=== PATIENT | male | born 1965 | race Asian ===

== ENCOUNTER 2021-06-13 09:10 | Emergency (ER) | payer MEDICAID, OTHER ==
[~2021-06-13] VITALS: Ht 165.1 cm; Wt 63.0 kg
[2021-06-13] MEDS ORDERED: ACETAMINOPHEN 160 MG/5 ML SUSPENSION UDCUP PO ONE (10:30)
[2021-06-13] MEDS ORDERED: ACETAMINOPHEN 500 MG TABLET PO ONE (11:00)
[2021-06-13 11:26] VITALS: BP 112/73
== END 2021-06-13 12:05 | disposition home or self-care (01) ==
LOC: EMS 09:10
DX: R51.9 Headache, unspecified (principal); F17.210 Nicotine dependence, cigarettes, uncomplicated
CPT/HCPCS: 99282; Z7502; Z7610

== ENCOUNTER 2021-06-19 19:46 | Emergency (ER) | payer OTHER ==
[~2021-06-19] VITALS: Ht 167.6 cm; Wt 59.1 kg
[2021-06-19 20:45] VITALS: BP 129/75
[2021-06-19] MEDS ORDERED: ACETAMINOPHEN 500 MG TABLET PO ONE (21:00)
== END 2021-06-19 21:30 | disposition home or self-care (01) ==
LOC: EMS 19:50
DX: R51.9 Headache, unspecified (principal); F17.210 Nicotine dependence, cigarettes, uncomplicated; Z59.00 Homelessness unspecified
CPT/HCPCS: 99282; Z7502; Z7610

== ENCOUNTER 2021-10-05 08:29 | Emergency (ER) | payer MEDICAID, OTHER ==
[~2021-10-05] VITALS: Ht 165.1 cm; Wt 63.6 kg
[2021-10-05 08:32] VITALS: BP 130/72
== END 2021-10-05 14:47 | disposition left against medical advice (07) ==
LOC: EMS 08:31
DX: R51.9 Headache, unspecified (principal); Z53.21 Procedure and treatment not carried out due to patient leaving prior to being seen by health care provider

== ENCOUNTER 2021-10-13 06:47 | Emergency (ER) | payer MEDICAID ==
[~2021-10-13] VITALS: Ht 165.1 cm; Wt 63.6 kg
[2021-10-13] MEDS ORDERED: ACETAMINOPHEN 500 MG TABLET PO ONE (07:30)
[2021-10-13 07:31] VITALS: BP 125/69
== END 2021-10-13 07:36 | disposition home or self-care (01) ==
LOC: EMS 06:47
DX: R51.9 Headache, unspecified (principal); F17.210 Nicotine dependence, cigarettes, uncomplicated; F15.90 Other stimulant use, unspecified, uncomplicated
CPT/HCPCS: 99282; Z7502; Z7610

== ENCOUNTER 2021-11-03 05:05 | Emergency (ER) | payer MEDICAID ==
[~2021-11-03] VITALS: Ht 170.2 cm; Wt 84.0 kg
[2021-11-03 05:06] VITALS: BP 137/65
== END 2021-11-03 05:32 | disposition left against medical advice (07) ==
LOC: EMS 05:06
DX: Z53.21 Procedure and treatment not carried out due to patient leaving prior to being seen by health care provider (principal)

== ENCOUNTER 2021-11-29 08:26 | Emergency (ER) | payer MEDICAID | END 2021-11-29 10:03 | disposition left against medical advice (07) | LOC: EMS 08:26 | DX: Z53.21 Procedure and treatment not carried out due to patient leaving prior to being seen by health care provider (principal) ==

== ENCOUNTER 2021-12-04 08:15 | Emergency (ER) | payer MEDICAID ==
[~2021-12-04] VITALS: Ht 167.6 cm; Wt 58.2 kg
[2021-12-04 08:18] VITALS: BP 133/82
[2021-12-04] MEDS ORDERED: ACET-66 PO (08:48)
== END 2021-12-04 08:59 | disposition home or self-care (01) ==
LOC: EMS 08:16
DX: R51.9 Headache, unspecified (principal); F15.10 Other stimulant abuse, uncomplicated; F17.210 Nicotine dependence, cigarettes, uncomplicated
CPT/HCPCS: 99282; Z7502